=== PATIENT | female | born 1950 | race Caucasian/White ===

== ENCOUNTER 2024-09-23 10:42 | Emergency (ER) | payer MEDICARE, OTHER, SELFPAY ==
[2024-09-23 10:50] VITALS: BP 134/84; PULSE 85; RESP 18; TEMP 36.2; O2SAT 98; BMI 30.5
--- NOTE | 2024-09-23 10:52 | CTR_ITS ---
PROCEDURE INFORMATION: Exam: CT Head Without Contrast Exam date and time: 09/23/2024 10:57 AM Age: 74 years old Clinical indication: Injury or trauma; Fall; Blunt trauma (contusions or hematomas); Without loss of consciousness; Injury details: Lac above left eye; Additional info: Head injury TECHNIQUE: Imaging protocol: Computed tomography of the head without contrast. Radiation optimization: All CT scans at this facility use at least one of these dose optimization techniques: automated exposure control; mA and/or kV adjustment per patient size (includes targeted exams where dose is matched to clinical indication); or iterative reconstruction. COMPARISON: No relevant prior studies available. RADIATION DOSE METRICS: Total DLP (mGy-cm): 1068.74 FINDINGS: Brain: Age related diffuse parenchymal volume loss. Mineralization of bilateral basal ganglia, age-related. No recent infarct, intracranial bleed or mass effect. Cerebral ventricles: No ventriculomegaly. Pituitary gland and sella: There is a normal empty pituitary sella. Paranasal sinuses: Visualized sinuses are unremarkable. No fluid levels. Mastoid air cells: Visualized mastoid air cells are well aerated. Orbital cavities: Post bilateral cataract surgery. Bones: Unremarkable. No acute fracture. Soft tissues: There is a left forehead skin defect to be correlated with clinical exam to rule out laceration. CT/CT head wo con* [id number] IMPRESSION: No acute intracranial posttraumatic changes.
--- NOTE | 2024-09-23 10:52 | ECG_ITS ---
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
--- NOTE | 2024-09-23 10:52 | W.ED.HEATRA ---
HPI - Head Injury General: Chief complaint: Fall Stated complaint: fall Time Seen by Provider: 09/23/24 10:49 Source: patient Mode of arrival: ambulatory Limitations: no limitations History of Present Illness: 74-year-old female states that she is at nondenominational she has a history of orthostatic hypotension states she had stood up felt lightheaded and fell and did strike her head she has a laceration to her left forehead skin to her left elbow she denies any elbow pain denies any neck pain she has a mild headache she denies any chest pain never fully passed out. Associated symptoms: Deny nausea, neck pain or vomiting Related Data Allergies Allergy/AdvReac Type Severity Reaction Status Date / Time No Known Allergies Allergy Verified 09/23/24 10:54 Review of Systems Const: Denies: fever(s), chills, body aches or change in appetite Eyes: Denies: blurry vision ENMT: Denies: throat pain or dental pain Card: Reports: pre-syncope; Denies: chest pain Resp: Denies: dyspnea GI: Denies: abdominal pain, nausea, vomiting or diarrhea Musc: Denies: neck pain or back pain Skin/Breast: Denies: rash Neuro: Reports: headache(s) Physical Exam Const: COMMON NORMALS: no acute distress, patient oriented x3 and healthy appearing HENMT: COMMON NORMALS: normocephalic HEAD & SCALP: normocephalic OTHER: 3 cm laceration left forehead Eye: COMMON NORMALS: Equal, round and reactive pupils present and EOMs intact bilaterally PUPIL: Yes Equal, round and reactive pupils present Neck/C-Spine: COMMON NORMALS: full ROM and supple CERVICAL SPINE: No Cervical spine tenderness Chest: COMMONS NORMALS: normal inspection of the chest and normal palpation of entire chest wall Resp: COMMON NORMALS: normal respiratory effort, No retractions, No use of accessory muscles and clear to auscultation bilaterally AUSCULTATION: clear to auscultation bilaterally Cardio: COMMON NORMALS: regular rate, regular rhythm and No murmurs present (Cardio) RATE: regular rate RHYTHM: regular rhythm Extremity: COMMON NORMALS: full ROM Neuro: COMMON NORMALS: patient oriented x3, moves all extremities and no focal motor deficits Psych: COMMON NORMALS: mental status grossly normal, Normal thought process present and cooperative THOUGHT PROCESS: Normal thought process present Skin: NARRATIVE SKIN EXAM: Skin tear noted to left elbow Procedures Laceration Laceration 1: Site: face Side (If applicable): left Size (cm): 2 Description: linear Depth: simple, single layer Local Anesthetic: lidocaine 1% Amount of anesthesia used (mL): 8 Pre-repair: wound explored, irrigated extensively and deep structures intact Skin layer closed with: nylon Size (cm): 5-0 Number of sutures: 4 Technique: simple, interrupted Course Vital Signs: Vital signs: Vital Signs Temperature 97.1 F L 09/23/24 10:50 Pulse Rate 85 09/23/24 10:50 Respiratory Rate 18 09/23/24 10:50 Blood Pressure 134/84 09/23/24 10:50 Pulse Oximetry 98 09/23/24 10:50 Oxygen Delivery Me thod Room Air 09/23/24 10:50 MDM - Head Injury Medcial Decision Making Patient presents with head laceration after a fall she had a near syncopal event has a history of orthostatic hypotension blood work head CT EKG are normal she is felt improved here did suture laceration she is follow-up with PCP return if worsening. She does have sutures out 7 days Medical Records I reviewed the patient's medical records. Lab Data I reviewed the patient's lab results. 09/23/24 11:10 09/23/24 11:[address] 09/23/24 10:52 IMPRESSION: No acute intracranial posttraumatic changes. Laboratory Results WBC 8.12 10^3/uL (3.29-11.43) 09/23/24 11:10 RBC 3.37 10^6/uL (3.85-5.65) L 09/23/24 11:10 Hgb 10.50 g/dL (11.27-16.99) L 09/23/24 11:10 Hct 33.2 % (36-47) L 09/23/24 11:10 MCV 98.5 fl (85-98) H 09/23/24 11:10 MCH 31.2 pg (27-33) 09/23/24 11:10 MCHC 31.6 g/dL (30-55) 09/23/24 11:10 RDW 14.6 % (12.1-15.1) 09/23/24 11:10 Plt Count 237 10^3/cmm (157-399) 09/23/24 11:10 MPV 10.1 fL (7.4-10.4) 09/23/24 11:10 Neut % (Auto) 58.7 % 09/23/24 11:10 Lymph % (Auto) 27.8 % 09/23/24 11:10 Prentiss % (Auto) 10.1 % 09/23/24 11:10 Eos % (Auto) 2.3 % 09/23/24 11:10 Baso % (Auto) 0.9 % 09/23/24 11:10 Neut # (Auto) 4.76 10^3/uL (1.8-7.7) 09/23/24 11:10 Lymph # (Auto) 2.3 10^3/uL (0.8-4.8) 09/23/24 11:10 Prentiss # (Auto) 0.8 10^3/uL (0.2-0.9) 09/23/24 11:10 Eos # (Auto) 0.2 10^3/uL (0.0-0.8) 09/23/24 11:10 Baso # (Auto) 0.1 10^3/uL (0.0-0.1) 09/23/24 11:10 Nucleated RBC % (auto) 0 % 09/23/24 11:10 Nucleated RBCs # 0.0 /100WBC 09/23/24 11:10 Sodium 135 mmol/L (136-145) L 09/23/24 11:10 Potassium 4.3 mmol/L (3.5-5.1) 09/23/24 11:10 Chloride 101 mmol/L (98-107) 09/23/24 11:10 Carbon Dioxide 24 mmol/L (22-29) 09/23/24 11:10 Anion Gap 14.3 (5-19) 09/23/24 11:10 BUN 15 mg/dL (8-23) 09/23/24 11:10 Creatinine 0.8 mg/dL (0.5-0.9) 09/23/24 11:10 GFR Calculation Not Reportable 09/23/24 11:10 Glucose 89 mg/dL (65-115) 09/23/24 11:10 Calculated Osmolality 280 mOsm/kg (285-295) L 09/23/24 11:10 Calcium 9.8 mg/dL (8.5-10.5) 09/23/24 11:10 All radiology interpretation(s) finalized by discharge Discharge Plan Discharge Patient Disposition: Home Clinical Impression: Laceration of head, Near syncope Condition: Stable Discharge Orders: Discharge ED (Routine); Ordered 09/23/24 Ordered By: Glenna Ross Discharge Diet: Advance as tolerated Discharge Activity: Resume usual activity Patient Instructions: Near Syncope (ED), Head Laceration (ED) Print Language: Faroese Coding Level of Care Code ED Master Carpenter for Karly Gilbert
--- NOTE | 2024-09-23 10:58 | PC.NURSE ---
PATIENT LEFT ARM BANDAGED WITH TELFA AND COBAN.
[2024-09-23 11:15] LABS: Basophils # 0.1 10^3/uL (0.0-0.1); Basophils % 0.9 %; Eosinophils # 0.2 10^3/uL (0.0-0.8); Eosinophils % 2.3 %; Hematocrit 33.2 % (36-47); Lymphocytes # 2.3 10^3/uL (0.8-4.8); Lymphocytes % 27.8 %; Mean Corpuscular HGB Conc 31.6 g/dL (30-55); Mean Corpuscular Hemoglobin 31.2 pg (27-33); Mean Corpuscular Volume 98.5 fl (85-98); Mean Platelet Volume 10.1 fL (7.4-10.4); Monocytes # 0.8 10^3/uL (0.2-0.9); Monocytes % 10.1 %; Neutrophils # 4.76 10^3/uL (1.8-7.7); Neutrophils % 58.7 %; Nucleated Red Blood Cells % 0 %; Platelet Count 237 10^3/cmm (157-399); Red Blood Count 3.37 10^6/uL (3.85-5.65); Red Cell Distribution Width 14.6 % (12.1-15.1); White Blood Count 8.12 10^3/uL (3.29-11.43)
[2024-09-23 11:30] LABS: Anion Gap 14.3 (5-19); Blood Urea Nitrogen 15 mg/dL (8-23); Calcium 9.8 mg/dL (8.5-10.5); Carbon Dioxide 24 mmol/L (22-29); Chloride 101 mmol/L (98-107); Creatinine Clr Calc Pharmacy 73.9646; Glucose 89 mg/dL (65-115); Osmolality Calculated 280 mOsm/kg (285-295); Potassium 4.3 mmol/L (3.5-5.1); Sodium 135 mmol/L (136-145)
[2024-09-23 11:50] VITALS: BP 150/90; PULSE 78; RESP 16; O2SAT 93
== END 2024-09-23 11:50 | disposition home or self-care (01) ==
PROVIDERS: Emergency Provider Emergency Medicine
DX: S01.81XA Laceration without foreign body of other part of head, initial encounter (principal); R55 Syncope and collapse; W19.XXXA Unspecified fall, initial encounter
CPT/HCPCS: 12011; 70450; 80048; 85025; 93005; 99284